=== PATIENT | male | born 1995 | race Caucasian/White ===

== ENCOUNTER 2021-03-17 11:35 | Emergency (ER) | payer OTHER ==
[~2021-03-17] VITALS: Ht 185.4 cm; Wt 73.9 kg
[2021-03-17] MEDS ORDERED: CLIN300 PO (12:13)
== END 2021-03-17 12:23 | disposition home or self-care (01) ==
LOC: ER 11:35
DX: K04.7 Periapical abscess without sinus (principal)
CPT/HCPCS: 99282; A9270